=== PATIENT | male | born 1950 ===

== ENCOUNTER 2019-10-23 11:24 | Emergency (ER) | payer MEDICARE ==
[2019-10-23] MEDS ORDERED: NS 0.9% 1000 ML** 1,000 ML IV ONE (11:41)
--- NOTE | 2019-10-23 11:49 | ED ---
Neurological HPI - HPI Summary HPI Summary: Pt. is a 69 y.o male who presents to for bilateral facial numbness bilaterally that started acutely at 1030 while pt. was at work. Past medical hx of TIA, HTN , CAD, CHF. Pt. also c/o bilateral leg weakness. Denies h/a, chest pain, SOB. Sxs are moderate in severity. No current modifying factors. - History of Current Complaint Chief Complaint: EDNeurologicalDeficit Stated Complaint: FACIAL NUMBNESS/WEAKNESS PER PT Time Seen by Provider: 10/23/19 11:41 Pain Intensity: 0 - Allergy/Home Medications Allergies/Adverse Reactions: Allergies Allergy/AdvReac Type Severity Reaction Status Date / Time No Known Allergies Allergy Verified 10/23/19 11:29 Home Medications: Home Medications Aspirin TAB* [Aspirin 325 MG TAB*] 325 mg PO DAILY 10/23/19 [History Confirmed 10/23/19] Empaglifozin (NF) [Jardiance] 25 mg PO DAILY 10/23/19 [History Confirmed ] Icosapent Ethyl [Vascepa] 2 gm PO BID 10/23/19 [History Confirmed 10/23/19] Lisinopril TAB* [Prinivil TAB*] 5 mg PO DAILY 10/23/19 [History Confirmed ] Metoprolol Succinate XL TAB* [Toprol XL TAB*] 100 mg PO DAILY 10/23/19 [History Confirmed 10/23/19] PMH/Surg Hx/FS Hx/Imm Hx Previously Healthy: Yes Endocrine/Hematology History: Reports: Hx Diabetes Cardiovascular History: Denies: Hx Pacemaker/ICD Respiratory History: Reports: Hx Chronic Obstructive Pulmonary Disease (COPD) GI History: Reports: Hx Gastroesophageal Reflux Disease, Hx Hiatal Hernia History: Denies: Hx Dialysis, Hx Renal Disease Sensory History: Denies: Hx Hearing Aid Psychiatric History: Denies: Hx Panic Disorder - Surgical History Surgery Procedure, Year, and Place: 07/09/2015 [facility]. tonsilectomy - Immunization History Date of Tetanus Vaccine: >10 years Date of Influenza Vaccine: 2009 Infectious Disease History: No Infectious Disease History: Denies: Traveled Outside the [place] in Last 30 Days - Social History Alcohol Use: None Substance Use Type: Reports: None Hx Tobacco Use: Yes Smoking Status (MU): Current Every Day Smoker Type: Cigarettes Review of Systems Constitutional: Negative Eyes: Negative Negative: Blurred Vision Cardiovascular: Negative Respiratory: Negative Gastrointestinal: Negative Positive: Weakness, Paresthesia All Other Systems Reviewed And Are Negative: Yes Physical Exam Triage Information Reviewed: Yes Vital Signs On Initial Exam: Initial Vitals Temp Pulse Resp BP Pulse Ox 96.5 F 65 18 172/82 99 10/23/19 11:25 10/23/19 11:25 10/23/19 11:25 10/23/19 11:25 10/23/19 11:25 Vital Signs Reviewed: Yes Skin: Positive: Warm, Dry Head/Face: Positive: Normal Head/Face Inspection Eyes: Positive: Normal, EOMI, ALEXANDR, Conjunctiva Clear Neck: Positive: Supple Respiratory/Lung Sounds: Positive: Clear to Auscultation, Breath Sounds Present Cardiovascular: Positive: Normal, RRR Musculoskeletal: Positive: Normal, Strength/ROM Intact Neurological: Positive: Normal, Alert, Oriented to Person Place, Time, CN Intact II-III, Finger to Nose - normal, Facial Symmetry, Speech Normal. Negative: Sensory/Motor Intact - Dminished sensation to bilateral face and to right arm., Receptive Aphasia, Expressive Aphasia, Facial Droop, Slurred Speech , Pronator Drift Present Psychiatric: Positive: Affect/Mood Appropriate Procedures - Sedation Patient Received Moderate/Deep Sedation with Procedure: No Diagnostics - Vital Signs Vital Signs Temp Pulse Resp BP Pulse Ox 10/23/19 11:25 96.5 F 65 18 172/82 99 - Laboratory Result Diagrams: 10/23/19 12:10 10/23/19 12:10 Lab Statement: Any lab studies that have been ordered have been reviewed, and results considered in the medical decision making process. NIH Scale - NIH Scale Level of Consciousness: Alert/Keenly Responsive Ask Patient the Month and His/Her Age: Both Correct Ask Pt to Open/Close Eyes and Business Solutions Consultant/Release Non-Paretic Hand: Both Correctly Best Gaze (Only Horizontal Eye Movement): Normal Visual Field Testing: No Visual Loss Facial Paresis-Pt to Smile & Close Eyes or Grimace Symmetry: Normal/Symmetrical Motor Function - Right Arm: No Drift-Holds 10 Seconds Motor Function - Left Arm: No Drift-Holds 10 Seconds Motor Function - Right Leg: No Drift-Holds 10 Seconds Motor Function - Left Leg: No Drift-Holds 10 Seconds Limb Ataxia-Must be out of Proportion to Weakness Present: Absent Sensory (Use Pinprick to Test Arms/Legs/Trunk/Face): Pinprick Less on Affected Best Language (Describe Picture, Name Items): No Aphasia Dysarthria (Read Several Words): Normal Extinction and Inattention: No Abnormality Total Score: 1 Course/Dx - Course Course Of Treatment: Patient presenting with complaints of bilateral facial numbness and decreased sensation to right arm. NIHSS 1 for decreased sensation to right arm and face. No unilateral weakness on exam. Afebrile with stable vital signs. Case discussed with Dr. Grissom who recommends calling [facility]. CT brain negative for acute findings. Patient was examined by neurologist , Dr. Velarde, at bedside in [place] and he does not recommend CTA at this time. ECG done at 1210 shows a sinus bradycardia of 58 bpm, normal axis, no STEMI. Labs show mild increased in creatine but otherwise unremarkable. After CT pt. c/o whole body paresthesias. Pt. examined by Dr. Velarde in ED. He does not feel pt. is having a stroke or TIA. Dr. Velarde feels pt. can be dc from a neuro standpoint. On re-exam pt. resting comfortably without complaint. Already takes asa daily. Pt. comfortable with dc home and close f.u with pcp. WIll return to er if sxs change or worsen. - Differential Dx Differential Diagnoses Neuro: Positive: Anxiety, Cerebrovascular Accident, Metabolic Abnormality, Transient Ischemic Attack - Diagnoses Provider Diagnoses: Paresthesia Discharge ED - Sign-Out/Discharge Documenting (check all that apply): Patient Departure - Discharge Plan Condition: Good Disposition: HOME Patient Education Materials: Paresthesia (ED) Referrals: Anuradha Sanchez MD [Primary Care Provider] - Additional Instructions: Follow up with your PCP in 2-3 days for recheck Continue home medications as directed Stop smoking Return to ER if symptoms change or worsen - Billing Disposition and Condition Condition: GOOD Disposition: Home - Attestation Statements Provider Attestation: pt seen by midlevel provider independently, based on their assessment, it was not necessary to present the case to me but I was available for consultation. I did not form a physician-patient relationship with the patient. The chart however, has been reviewed. am signing this note strictly in an administrative capacity.
[2019-10-23 12:22] LABS: ABS Eosinophils 0.5 10^3/ul (0-0.6); ABS Lymphocytes 2.1 10^3/ul (1.0-4.8); ABS Monocytes 0.4 10^3/ul (0-0.8); ABS Neutrophils 6.2 10^3/ul (1.5-7.7); Eosinophil % 5.9 %; Hematocrit 41 % (42-52); Hemoglobin 14.3 g/dL (14.0-18.0); Lymphocyte % 22.1 %; Mean Corpuscular HGB Conc 35 g/dL (31-36); Mean Corpuscular Hemoglobin 32 pg (27-31); Mean Corpuscular Volume 92 fL (80-94); Mean Platelet Volume 6.9 fL (7.4-10.4); Platelet Count 266 10^3/uL (150-450); Red Blood Count 4.51 10^6 /uL (4.18-5.48); Red Cell Distribution Width 13 % (10-15); White Blood Count 9.3 10^3/uL (3.5-10.8)
[2019-10-23 12:33] LABS: Activated Partial Thrombo Time 36.6 seconds (26.0-38.0); INR 0.94 (0.82-1.09)
[2019-10-23 12:46] LABS: Albumin 4.1 g/dL (3.2-5.2); Albumin/Globulin Ratio 1.6 (1-3); BUN/Creatinine Ratio 16.9 (8-20); Calcium 9.2 mg/dL (8.6-10.3); EGFR African American 59.8 (>60); EGFR Non-African American 49.4 (>60); Globulin 2.5 g/dL (2-4); HDL Cholesterol 25.6 mg/dL; Potassium 4.8 mmol/L (3.5-5.0); Total Bilirubin 0.7 mg/dL (0.2-1.0); Total Protein 6.6 g/dL (6.4-8.9)
[2019-10-23 13:42] LABS: Urine Appearance Clear; Urine Color Yellow; Urine Specific Gravity 1.005 (1.010-1.030)
[2019-10-23 13:43] LABS: Urine Blood Negative (Negative); Urine Ketones Negative (Negative); Urine Protein Negative (Negative); Urine Urobilinogen Negative (Negative)
[2019-10-23 13:48] LABS: Urine Bilirubin Negative (Negative); Urine Glucose 3+(>=500 mg/dL) (Negative); Urine Nitrite Negative (Negative)
[2019-10-23 14:41] LABS: TSH (Thyroid Stimulating Horm) 2.44 mcIU/mL (0.34-5.60)
[2019-10-23 15:12] VITALS: BP 140/62
--- NOTE | 2019-10-23 19:09 | CONS ---
NEUROLOGY CONSULTATION NOTE: DATE OF CONSULT: 10/23/19 - EMERGENCY DEPT CONSULTING PROVIDER: Dr. Danielle. REASON FOR CONSULT: Numbness sensation throughout his body. CHIEF COMPLAINT: Numbness in the face bilaterally. HISTORY OF PRESENT ILLNESS: Mr. 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 The patient has a history of dyslipidemia, TIA in 2006, tobacco use, who was sitting down for approximately few hours when suddenly he stood up, felt lightheaded and had a sudden surge of numbness throughout his body. He did not pass out. He felt like he was going to pass out. He has had similar symptoms in the past especially when standing from a seated position. He did not have any focal weakness, slurred speech, swallowing difficulty or word finding difficulty. The symptoms almost completely resolved except that he still has mild numbness sensation that is "inside of me" involving both forehead and the skin around the lower eyes. NIH stroke scale 0. PAST MEDICAL HISTORY: Dyslipidemia, TIA in 2006, GERD, history of tobacco abuse 1 pack per day for over 40 years, systolic heart failure with ejection fraction of 35%, dyspnea on exertion. He has coronary artery disease and drug- eluting stent to the RCA. He takes aspirin regularly. FAMILY HISTORY: No family history of stroke or seizures. SOCIAL HISTORY: The patient does psychotherapy. He smokes 1 pack per day for over 40 years. He denied any excessive alcohol use. REVIEW OF SYSTEMS: A 14-point review of systems was obtained and otherwise negative except for what is mentioned in the HPI. PHYSICAL EXAM: Vitals: Temperature of 96.5, pulse rate of 58, respiratory rate of 23, blood pressure of 130/72. Orthostatic vitals were obtained personally by me and were negative. The orthostatic vitals were obtained after IV fluids. General: Well-nourished, well-developed man, in no acute distress. Head: Atraumatic, normocephalic without any obvious abnormality. Neck is supple and symmetrical with no carotid bruits. Eyes: Conjunctivae/corneas are clear. Cardiovascular: Regular rate and rhythm with normal S1, S2. Pulmonary: Clear to auscultation bilaterally with no wheezing or rhonchi. Extremities: Normal range of motion with no cyanosis or edema. Skin: No skin lesions or laceration. Psych: Affect is broad, normal mood, easy to establish rapport. Neurological Examination: Awake, alert, oriented to person, place, time, and general circumstances. Speech and language including repetition, comprehension , and assessment were evaluated and found to be normal. Pupils are equal, round and reactive to light. Extraocular muscles are intact. There is no facial asymmetry. Tongue is symmetric and midline with no atrophy or fasciculation. Motor Examination: 5/5 strength in the upper and lower extremities bilaterally. Sensation is intact to light touch throughout. Coordination: Normal finger-to- nose and [id number] testing bilaterally. Reflexes: 2+ in the upper and lower extremities, 0 at the ankles bilaterally. Gait: Normal stance and gait with no ataxia. LABS, IMAGING, AND OTHER DIAGNOSTIC TESTING: WBC of 9.3, hematocrit of 41, platelet count of 266. Creatinine 1.42, BUN and creatinine ratio of 16.9, glucose of 105. Lactic acid is 1.8. Vitamin B12 of 1051. TSH 2.44. Urinalysis negative for pyuria. CT head without contrast showed no evidence of acute intracranial abnormality. Please note that the patient had a carotid ultrasound completed on 09/04/19 that showed no evidence of severe internal carotid artery stenosis. He has antegrade flow in both vertebral arteries. CT head without contrast showed no evidence of acute intracranial abnormality. There is a questionable old hypodensity in the right pontine region. ASSESSMENT AND RECOMMENDATIONS: Mr. Eloy Agiulera is a 69-year-old man with a past medical history significant for hypertension, dyslipidemia, diabetes mellitus type 2, transient ischemic attack in 2006, who presented with an episode of postural lightheadedness associated with generalized numbness sensation of his bilateral face, shoulders, and legs. He currently continues to have subjective numbness involving the V1 distributions of the face bilaterally. He does not have any evidence of neurological deficits on exam and his NIH stroke scale is 0. The patient is taking aspirin 325 mg daily. 1. Sudden onset of generalized numbness associated with postural lightheadedness , I suspect this is more of a systemic problem like orthostatic hypotension, bradycardia or an episode of hypoglycemia in a patient who has diabetes. I do not suspect he has a stroke given the lack of lateralizing deficits. Bilateral sensory loss involving the face does not localize any isolated vascular abnormality. The patient is already taking aspirin and statin therapy. I do not think he had a stroke. It is unclear exactly what the episode was related to. The patient states that he feels fine and would prefer to go home to get this workup done as an outpatient for which I have agreed to proceed with. The patient can follow up with Neurology in 4 to 6 weeks. If he continues to have symptoms or if he has any sudden onset of new neurological deficits, numbness, tingling sensation, visual disturbance or swallowing difficulty, he should come to the ER immediately. The patient verbalized understanding. I also encouraged the patient to discontinue tobacco use and stay hydrated with IV fluids. Compression stockings may help with some of his postural lightheadedness. I encouraged him to discuss this further with his PCP. The patient has been ambulatory and has no focal deficits and is safe to go home from the neurology standpoint. [id number]/CPS #: [id number] MTDD
== END 2019-10-23 15:11 | disposition home or self-care (01) ==
LOC: ED 11:24
DX: R20.0 Anesthesia of skin (principal); R53.83 Other fatigue; E11.9 Type 2 diabetes mellitus without complications; I25.10 Atherosclerotic heart disease of native coronary artery without angina pectoris; I11.0 Hypertensive heart disease with heart failure; I50.9 Heart failure, unspecified; F17.210 Nicotine dependence, cigarettes, uncomplicated; K21.9 Gastro-esophageal reflux disease without esophagitis; J44.9 Chronic obstructive pulmonary disease, unspecified; Z79.84 Long term (current) use of oral hypoglycemic drugs; Z79.82 Long term (current) use of aspirin; Z79.899 Other long term (current) drug therapy; Z86.73 Personal history of transient ischemic attack (TIA), and cerebral infarction without residual deficits
CPT/HCPCS: 36415; 70450; 71045; 80053; 80061; 81003; 82607; 83605; 84443; 84484; 85025; 85610; 85730; 86618; 93005; 96365; 99283